=== PATIENT | female | born 1985 | race Caucasian/White ===

== ENCOUNTER 2023-03-23 12:35 | Emergency (ER) | payer SELFPAY ==
[~2023-03-23] VITALS: Ht 162.6 cm; Wt 59.0 kg
[2023-03-23] MEDS ORDERED: VANCOMYCIN IV 200 ML ONE (13:15)
[2023-03-23] MEDS ORDERED: VANCOMYCIN IV 1,000 MG in IV DEXTROSE 5% 250 ML IV ONE (13:15)
[2023-03-23 13:17] LABS: BASOPHILS % (AUTO) 0.3 % (0.0-2.0); EOSINOPHILS # (AUTO) 0.1 K/uL (0.0-0.7); EOSINOPHILS % (AUTO) 0.8 % (0.0-7.0); HEMATOCRIT 35.7 % (31.2-41.9); HEMOGLOBIN 11.9 g/dL (10.9-14.3); LYMPHOCYTES % (AUTO) 7.1 % (20.5-51.5); MEAN CORPUSCULAR HEMOGLOBIN 30.6 uug (24.7-32.8); MEAN CORPUSCULAR HGB CONC 33 g/dL (32.3-35.6); MEAN CORPUSCULAR VOLUME 92.1 fL (75.5-95.3); MONOCYTES # (AUTO) 0.5 K/uL (0.1-1.30); MONOCYTES % (AUTO) 3.9 % (0.0-11.0); NEUTROPHILS # (AUTO) 12.3 K/uL (1.8-8.9); NEUTROPHILS % (AUTO) 87.9 % (38.5-71.5); PLATELET COUNT (AUTO) 219 K/uL (179-408); RED BLOOD CELL COUNT(AUTO) 3.88 MIL/uL (3.63-4.92); RED CELL DISTRIBUTION WIDTH 13.4 % (12.3-17.7)
[2023-03-23 13:24] LABS: CALCIUM 8.6 mg/dL (8.5-10.1); CREATININE 0.8 mg/dL (0.6-1.3)
[2023-03-23 13:26] LABS: DIFFERENTIAL COMMENT 1
[2023-03-23 13:30] LABS: ALBUMIN 3.1 g/dL (3.4-5.0); BILIRUBIN,DIRECT 0.1 mg/dL (0.0-0.2); BILIRUBIN,TOTAL 0.5 mg/dL (0.2-1.0); TOTAL PROTEIN, SERUM 7.1 g/dL (6.4-8.2)
[2023-03-23] MEDS ORDERED: SULF1TAB48 PO (14:13)
[2023-03-23] MEDS ORDERED: diphenhydrAMINE 50 MG/1 ML VIAL ONE (15:04)
[2023-03-23] MEDS ORDERED: ACETAMINOPHEN ES 500 MG TABLET ONE (15:11)
[2023-03-23] MEDS ORDERED: ACETAMINOPHEN 325 MG TABLET PO ONE (15:15)
[2023-03-23] MEDS ORDERED: diphenhydrAMINE 50 MG/1 ML VIAL IV ONE (15:15)
[2023-03-23 17:50] VITALS: BP 116/60; O2SAT 99
== END 2023-03-23 17:50 | disposition home or self-care (01) ==
LOC: ER 12:35
DX: A49.01 Methicillin susceptible Staphylococcus aureus infection, unspecified site (principal); L73.8 Other specified follicular disorders; R10.2 Pelvic and perineal pain; Z59.00 Homelessness unspecified; Z88.8 Allergy status to other drugs, medicaments and biological substances; Z79.899 Other long term (current) drug therapy
CPT/HCPCS: 99284; 96365; 96366; 96375; 80076; 80048; 85025; 84702; 36415; J1200; J3370; A4663; A9150